=== PATIENT | male | born 1995 ===

== ENCOUNTER 2024-12-03 11:59 | Emergency (ER) | payer OTHER ==
[2024-12-03 12:08] VITALS: TEMP 97.8
[2024-12-03] MEDS: LIDOCAINE 1% INJ 10MG/ML (20 ML MDV) SQ ONE (12:49)
--- NOTE | 2024-12-03 12:49 | ED ---
General Adult HPI - General Chief complaint: Wound/Laceration Stated complaint: [facility]- R Hand Injury Time Seen by Provider: 12/03/24 12:22 Source: patient, RN notes reviewed Mode of arrival: ambulatory Limitations: no limitations - History of Present Illness Initial comments: 29-year-old male presents to the emergency department for evaluation of hand lac eration and finger pain from a crush injury. Patient states that this occurred at work. He notes that he had a large piece of lead to fall and landed on his fingers. He does report lacerations to the 2nd and 3rd fingers. He is up-to-date on a tetanus vaccine. - Related Data Previous Rx's Medication Instructions Recorded Cephalexin [Keflex] 500 mg PO Q6HR #28 cap 12/03/24 Allergies Allergy/AdvReac Type Severity Reaction Status Date / Time No Known Allergies Allergy Verified 12/03/24 12:07 Review of Systems ROS Statement: Those systems with pertinent positive or pertinent negative responses have been documented in the HPI. ROS Other: All systems not noted in ROS Statement are negative. Past Medical History Past Medical History: No Reported History History of Any Multi-Drug Resistant Organisms: None Reported Past Surgical History: Unable to Obtain Past Psychological History: No Psychological Hx Reported Smoking Status: Vaper Past Alcohol Use History: Rare Past Drug Use History: Marijuana General Exam Limitations: no limitations General appearance: alert, in no apparent distress Head exam: Present: atraumatic, normocephalic, normal inspection Eye exam: Present: normal appearance, PERRL, EOMI. Absent: scleral icterus, conjunctival injection, periorbital swelling Extremities exam: Present: full ROM, tenderness, normal capillary refill, other (Lacerations present to the 2nd and 3rd digits palmar aspect distal). Absent: pedal edema, joint swelling, calf tenderness Neurological exam: Present: alert, oriented X3 Psychiatric exam: Present: normal affect, normal mood Skin exam: Present: warm, dry. Absent: intact Course Vital Signs 12/03/24 12/03/24 12:02 13:53 Temperature 97.8 F Pulse Rate 60 63 Respiratory 16 18 Rate Blood Pressure 156/104 152/99 O2 Sat by Pulse 97 99 Oximetry Procedures - Laceration Laceration #1 Consent Obtained: verbal consent Indication: laceration Site: hand Size (cm): 1 Description: linear Depth: simple, single layer Anesthetic Used: lidocaine 1% Anesthesia Technique: local infiltration Pre-repair: wound explored, irrigated extensively Type of Sutures: other Size of Sutures: 4-0 Number of Sutures: 5 Technique: simple, interrupted Patient Tolerated Procedure: well, no complications Additional Comments: 2nd digit Laceration #2 Consent Obtained: verbal consent Indication: laceration Site: hand Size (cm): 1 Description: linear Depth: simple, single layer Anesthetic Used: lidocaine 1% Anesthesia Technique: local infiltration Pre-repair: wound explored, irrigated extensively Type of Sutures: other Size of Sutures: 4-0 Number of Sutures: 1 Technique: simple, interrupted Patient Tolerated Procedure: well, no complications Additional Comments: Third finger Medical Decision Making - Medical Decision Making Was pt. sent in by a medical professional or institution (, PA, HISTORICAL RECORDS ADMINISTRATOR, urgent care, hospital, or fci...) When possible be specific @ -No Did you speak to anyone other than the patient for history (EMS, parent, family, police, friend...)? What history was obtained from this source @ -No Did you review nursing and triage notes (agree or disagree)? Why? @ -I reviewed and agree with nursing and triage notes Were old charts reviewed (outside hosp., previous admission, EMS record, old EKG, old radiological studies, urgent care reports/EKG's, fci records)? Report findings @ -No old charts were reviewed Differential Diagnosis (chest pain, altered mental status, abdominal pain women, abdominal pain men, vaginal bleeding, weakness, fever, dyspnea, syncope, headache, dizziness, GI bleed, back pain, seizure, CVA, palpatations, mental health, musculoskeletal)? @ -Differential Musculoskeletal Muscular strain, contusion, ligament sprain, fracture, arthritis, septic arthritis, bursitis, cellulitis, muscle spasm, nerve compression, DVT, arterial occlusion, herpes zoster, electrolyte abnormality, tumor.... This is not meant to be in all inclusive list EKG interpreted by me (3pts min.). @ -None X-rays interpreted by me (1pt min.). @ -X-rays obtained revealingSoft tissue injury to the distal index finger, nondisplaced transverse fracture of the second distal phalangeal shaft CT interpreted by me (1pt min.). @ -None done U/S interpreted by me (1pt. min.). @ -None done What testing was considered but not performed or refused? (CT, X-rays, U/S, labs)? Why? @ -None What meds were considered but not given or refused? Why? @ -None Did you discuss the management of the patient with other professionals (professionals i.e. , PA, HISTORICAL RECORDS ADMINISTRATOR, lab, RT, psych nurse, social insurance administrator, diesel locomotive firer, teacher, loan review officer, correctional casework specialist)? Give summary @ -No Was smoking cessation discussed for >3mins.? @ -No Was critical care preformed (if so, how long)? @ -No Were there social determinants of health that impacted care today? How? (Homelessness, low income, unemployed, alcoholism, drug addiction, transportation, low edu. Level, literacy, decrease access to med. care, [facility], rehab)? @ -No Was there de-escalation of care discussed even if they declined (Discuss DNR or withdrawal of care, Hospice)? DNR status @ -No What co-morbidities impacted this encounter? (DM, HTN, Smoking, COPD, CAD, Cancer, CVA, ARF, Chemo, Hep., AIDS, mental health diagnosis, sleep apnea, morbid obesity)? @ -None Was patient admitted / discharged? Hospital course, mention meds given and route, prescriptions, significant lab abnormalities, going to OR and other pertinent info. @ -Discharge. Patient presented emergency department for evaluation of hand laceration. Patient presented the emergency department for evaluation of finger laceration and crush injury. The wounds were cleaned. Lacerations were repaired. X-rays obtained revealing nondisplaced transverse fracture of the distal phalangeal shaft of the second digit. The patient was placed in a finger splint. Advised follow-up. He will be started on antibiotics. He is up-to-date on tetanus vaccine. He is understanding agreeable plan. Patient stable at time of discharge. Case discussed with Dr. Mohamud. Undiagnosed new problem with uncertain prognosis? @ -No Drug Therapy requiring intensive monitoring for toxicity (Heparin, Nitro, Insulin, Cardizem)? @ -No Were any procedures done? @ -No Diagnosis/symptom? @ -Laceration, finger fracture Acute, or Chronic, or Acute on Chronic? @ -Acute Uncomplicated (without systemic symptoms) or Complicated (systemic symptoms)? @ -Uncomplicated Side effects of treatment? @ -No Exacerbation, Progression, or Severe Exacerbation? @ -No Poses a threat to life or bodily function? How? (Chest pain, USA, VT, pneumonia, PE, COPD, DKA, ARF, appy, cholecystitis, CVA, Diverticulitis, Homicidal, Suicidal, threat to staff... and all critical care pts) @ -No Disposition Clinical Impression: Laceration, Finger fracture Disposition: HOME SELF-CARE Condition: Stable Instructions (If sedation given, give patient instructions): Care For Your Stitches (DC), Hand Fracture (DC) Additional Instructions: Please follow up with your doctor. Return to the emergency department for new or worsening symptoms. Prescriptions: Cephalexin [Keflex] 500 mg PO Q6HR #28 cap Is patient prescribed a controlled substance at d/c from ED?: No Referrals: None,Stated [Primary Care Provider] - 1-2 days Iza Alvarez DO [Doctor of Osteopathic Medicine] - 1-2 days
--- NOTE | 2024-12-03 13:08 | XR ---
EXAMINATION TYPE: XR hand complete RT DATE OF EXAM: 12/03/2024 1:00 PM COMPARISON: None CLINICAL INDICATION: Male, 29 years old with history of crush injury; PHH, pain TECHNIQUE: 3 views FINDINGS: There is soft tissue injury to the distal aspect of the index finger. There is an underlying nondispl aced transverse fracture of the distal phalangeal shaft. No other acute fracture, subluxation, disloc ation is seen. IMPRESSION: Soft tissue injury to the distal aspect of the index finger. Underlying nondisplaced transverse fract ure of the second distal phalangeal shaft. [facility], Workstation: [facility], 12/03/2024 1:06 PM
[2024-12-03] MEDS: CEPHALEXIN 500 MG CAP PO STA (13:52)
[2024-12-03 13:54] VITALS: BP 152/99; PULSE 63; RESP 18
== END 2024-12-03 13:59 | disposition home or self-care (01) ==
LOC: EC 11:59
DX: S61.210A Laceration without foreign body of right index finger without damage to nail, initial encounter (principal); S61.212A Laceration without foreign body of right middle finger without damage to nail, initial encounter; F17.290 Nicotine dependence, other tobacco product, uncomplicated; W23.0XXA Caught, crushed, jammed, or pinched between moving objects, initial encounter; Y99.0 Civilian activity done for income or pay
CPT/HCPCS: 73130; 99283; 12001; J2003